=== PATIENT | female | born 1985 | race Asian ===

== ENCOUNTER 2016-08-25 18:08 | Emergency (ER) | payer BC ==
[2016-08-25] MEDS ORDERED: Famotidine IV* 10 MG/ML 2 ML (20 mg) IV ONE (19:12)
[2016-08-25] MEDS ORDERED: Al Hydrox/Mg Hydrox/Simet LIQ* 30 ML UDC PO ONE (19:12)
[2016-08-25] MEDS ORDERED: Lidocaine 2% VISCOUS* 15 ML UDC PO ONE (19:12)
[2016-08-25] MEDS ORDERED: Ondansetron INJ* 2 MG/ML VIAL IV ONE (19:12)
[2016-08-25] MEDS ORDERED: SCOP/HYOS/ATR/PB(NF) 10 ML UDC PO ONE (19:12)
[2016-08-25] MEDS ORDERED: NS 0.9% 1000 ML* 1,000 ML IV ONE (19:12)
[2016-08-25 19:25] LABS: Hematocrit 39 % (35-47); Mean Corpuscular HGB Conc 34 g/dl (31-36); Mean Corpuscular Hemoglobin 30 pg (27-31); Mean Corpuscular Volume 89 fL (80-97); Mean Platelet Volume 8 um3 (7.4-10.4); Red Blood Count 4.37 10^6/ul (4.0-5.4); Red Cell Distribution Width 13 % (10.5-15); White Blood Count 8.7 10^3/ul (3.5-10.8)
[2016-08-25 19:29] LABS: Urine Bacteria Absent (Absent); Urine Bilirubin Negative (Negative); Urine Glucose Negative (Negative); Urine Nitrite Negative (Negative)
[2016-08-25 19:37] LABS: ALT 15 U/L (7-52); AST 15 U/L (13-39); Albumin 4.2 g/dL (3.2-5.2); Alkaline Phosphatase 38 U/L (34-104); Amylase 47 U/L (29-103); Anion Gap 4 mmol/L (2-11); BUN/Creatinine Ratio 15.1 (8-20); Blood Urea Nitrogen 8 mg/dL (6-24); C Reactive Protein 28.18 mg/L (< 5.00); CO2 Carbon Dioxide 27 mmol/L (22-32); Calcium 9.5 mg/dL (8.6-10.3); Chloride 104 mmol/L (101-111); EGFR African American 170.9 (>60); EGFR Non-African American 132.9 (>60); Globulin 3.1 g/dL (2-4); Glucose 91 mg/dL (70-100); Lipase 35 U/L (11.0-82.0); Potassium 4.1 mmol/L (3.5-5.0); Sodium 135 mmol/L (133-145); Total Protein 7.3 g/dL (6.4-8.9)
[2016-08-25] MEDS ORDERED: Morphine INJ* 4 MG/ML 1 ML CARPUJECT IV ONE (20:22)
[2016-08-25] MEDS ORDERED: Iohexol 300* (CONTRAST) 10 ML SDV IV ONE (20:36)
--- NOTE | 2016-08-25 22:13 | RAD ---
INDICATION: Bilateral upper quadrant and epigastric region abdominal pain. Bloating, nausea, dizziness. COMPARISON: December 29, 2015 HIDA scan. TECHNIQUE: Multidetector CT images were obtained from the lung bases to the ischial tuberosities with 72 mL Omnipaque 300 IV and oral contrast. Multiplanar reformation. REPORT: Unremarkable visualized inferior thorax. Upper normal liver size. No suspicious hepatic lesions or biliary dilatation. No CT abnormality of the gallbladder, pancreas, spleen. Small splenules anterior to the spleen. Negative for CT abnormality of the upper GI, small bowel, medial and posterior extending appendix, and colon. Negative for ascites, free air, hernias. Normal adrenal glands. Unremarkable kidneys with symmetric nephrograms and pyelograms. Negative for ureteral dilatation. Unremarkable urinary bladder as well as the rightward deviated uterus and RIGHT adnexal region. Approximate 2 cm grossly water density well circumscribed region in the LEFT ovary is most consistent with a follicular or hemorrhagic cyst. Negative for lymphadenopathy. Unremarkable abdominal aorta and iliac arteries. Physiologic distention of the IVC. Negative for suspicious osseous lesions. IMPRESSION: 1. No abnormality to account for upper abdominal pain. Normal appendix documented. Negative for obstructive uropathy. 2. Low suspicion approximate 2 cm probable follicular or hemorrhagic cyst of the LEFT ovary. Correlate with clinical findings and consider pelvic ultrasound for further assessment if deemed appropriate.
[2016-08-25 22:57] VITALS: BP 124/81
--- NOTE | 2016-08-25 23:00 | ED ---
Wilfredo Vasquez Matthew, scribed for Willis Yee MD on 08/25/16 at 1914 . Abdominal Pain/Female - HPI Summary HPI Summary: A 31 y/o female presents to the ED with intermittent epigastric abdominal pain since 3 days ago. The pain is rated 7-8/10 in severity and described as burning followed by sharp pains. Associated symptoms include bloating, dizziness w/ exertion, and nausea. The patient denies vomiting, diarrhea, and constipation. The patient has had these symptoms before and she went to a gastroenterology. Her gallbladder was also found to be normal at that time. The pain is worse ~30 minutes after PO intake and at night. - History of Current Complaint Chief Complaint: EDAbdPain Stated Complaint: ABD PAIN,BLOATING Time Seen by Provider: 08/25/16 19:03 Hx Obtained From: Patient ?: No Onset/Duration: Gradual Onset, Lasting Days - 3, Still Present Timing: Intermittent Episode Lasting Severity Initially: Moderate Severity Currently: Moderate Pain Intensity: 8 Pain Scale Used: 0-10 Numeric Location: Epigastric Radiates: No Character: Sharp, Burning Aggravating Factor(s): Food, Other: - At night Alleviating Factor(s): Nothing Associated Signs and Symptoms: Positive: Dizzy - w/ exertion, Nausea, Other: - bloating. Negative: Vomiting, Diarrhea Allergies/Adverse Reactions: Allergies Allergy/AdvReac Type Severity Reaction Status Date / Time No Known Allergies Allergy Verified 07/03/12 11:07 PMH/Surg Hx/FS Hx/Imm Hx Endocrine/Hematology History: Denies: Hx Diabetes GI History: Reports: Hx Gastroesophageal Reflux Disease Infectious Disease History: No Infectious Disease History: Denies: Traveled Outside the [place] in Last 30 Days - Family History Known Family History: Negative: Diabetes - Social History Alcohol Use: Occasionally Substance Use Type: Reports: None Smoking Status (MU): Never Smoked Tobacco Review of Systems Constitutional: Negative Eyes: Negative ENT: Negative Cardiovascular: Negative Respiratory: Negative Gastrointestinal: Other - abdominal bloating Positive: Abdominal Pain - Epigastric , Nausea. Negative: Vomiting, Diarrhea Genitourinary: Negative Musculoskeletal: Negative Skin: Negative Neurological: Other - Dizziness w/ exertion Psychological: Normal All Other Systems Reviewed And Are Negative: Yes Physical Exam - Summary Physical Exam Summary: VITAL SIGNS: Reviewed. GENERAL: Patient is a well developed and nourished female who is lying comfortable in the stretcher. Patient is not in any acute respiratory distress. HEAD AND FACE: Normocephalic and atraumatic. EYES: PERRLA, EOMI x 2, No injected conjunctiva. EARS: Hearing grossly intact. Ear canals and tympanic membranes are WNL. MOUTH: Oropharynx within normal limits. NECK: Supple, trachea is midline, no adenopathy, no JVD. CHEST: Symmetric, no tenderness at palpation LUNGS: Clear to auscultation bilaterally. No wheezing or crackles. CVS: RRR,, S1 and S2 present, no murmurs or gallops appreciated. ABDOMEN: Soft, positive epigastric tenderness. . No signs of distention. Positive bowel sounds. No rebound no guarding, and no masses palpated. No abdominal bruit or pulsations. EXTREMITIES: FROM in all major joints, no edema, no cyanosis or clubbing. NEURO: Alert and oriented x 3. No acute neurological deficits. Speech is normal. SKIN: Dry and warm Triage Information Reviewed: Yes Vital Signs On Initial Exam: Initial Vitals Temp Pulse Resp BP Pulse Ox 98.6 F 98 16 137/94 100 08/25/16 18:12 08/25/16 18:12 08/25/16 18:12 08/25/16 18:12 08/25/16 18:12 Vital Signs Reviewed: Yes Diagnostics - Vital Signs Vital Signs Temp Pulse Resp BP Pulse Ox 08/25/16 18:12 98.6 F 98 16 137/94 100 - Laboratory Lab Results: Lab Results 08/25/16 08/25/16 08/25/16 Range/Units 15:05 15:05 15:05 WBC 8.7 (3.5-10.8) 10^3/ul RBC 4.37 (4.0-5.4) 10^6/ul Hgb 13.0 (12.0-16.0) g/dl Hct 39 (35-47) % MCV 89 (80-97) fL MCH 30 (27-31) pg MCHC 34 (31-36) g/dl RDW 13 (10.5-15) % Plt Count 322 (150-450) 10^3/ul MPV 8 (7.4-10.4) um3 Neut % (Auto) 55.4 (38-83) % Lymph % (Auto) 34.6 (25-47) % Starke % (Auto) 6.8 (1-9) % Eos % (Auto) 2.7 (0-6) % Baso % (Auto) 0.5 (0-2) % Absolute Neuts (auto) 4.8 (1.5-7.7) 10^3/ul Absolute Lymphs (auto) 3.0 (1.0-4.8) 10^3/ul Absolute Monos (auto) 0.6 (0-0.8) 10^3/ul Absolute Eos (auto) 0.2 (0-0.6) 10^3/ul Absolute Basos (auto) 0 (0-0.2) 10^3/ul Absolute Nucleated RBC 0.01 10^3/ul Nucleated RBC % 0.1 Sodium 135 (133-145) mmol/L Potassium 4.1 (3.5-5.0) mmol/L Chloride 104 (101-111) mmol/L Carbon Dioxide 27 (22-32) mmol/L Anion Gap 4 (2-11) mmol/L BUN 8 (6-24) mg/dL Creatinine 0.53 (0.51-0.95) mg/dL Est GFR ( Amer) 170.9 (>60) Est GFR (Non-Af Amer) 132.9 (>60) BUN/Creatinine Ratio 15.1 (8-20) Glucose 91 (70-100) mg/dL Calcium 9.5 (8.6-10.3) mg/dL Total Bilirubin 0.30 (0.2-1.0) mg/dL AST 15 (13-39) U/L ALT 15 (7-52) U/L Alkaline Phosphatase 38 (34-104) U/L C-Reactive Protein 28.18 H (< 5.00) mg/L Total Protein 7.3 (6.4-8.9) g/dL Albumin 4.2 (3.2-5.2) g/dL Globulin 3.1 (2-4) g/dL Albumin/Globulin Ratio 1.4 (1-3) Amylase 47 (29-103) U/L Lipase 35 (11.0-82.0) U/L Beta HCG, Quant < 0.60 mIU/mL Urine Color Yellow Urine Appearance Clear Urine pH 7.0 (5-9) Ur Specific [place] 1.008 L (1.010-1.030) Urine Protein Negative (Negative) Urine Ketones Negative (Negative) Urine Blood 1+ H (Negative) Urine Nitrate Negative (Negative) Urine Bilirubin Negative (Negative) Urine Urobilinogen Negative (Negative) Ur Leukocyte Esterase 1+ H (Negative) Urine WBC (Auto) Trace(0-5/hpf) (Absent) Urine RBC (Auto) Trace(0-2/hpf) (Absent) Ur Squamous Epith Cells Present H (Absent) Urine Bacteria Absent (Absent) Urine Glucose Negative (Negative) Result Diagrams: 08/25/16 15:05 08/25/16 15:05 Lab Statement: Any lab studies that have been ordered have been reviewed, and results considered in the medical decision making process. - CT A/P CT Interpretation: No Acute Changes - IMPRESSION: 1. No abnormality to account for upper abdominal pain. Normal appendix documented. Negative for obstructive uropathy. 2. Low suspicion approximate 2 cm probable follicular or hemorrhagic cyst of the LEFT ovary. Correlate with clinical findings and consider pelvic ultrasound for further assessment if deemed appropriate. CT Interpretation Completed By: Radiologist Abdominal Pain Fem Course/Dx - Course Course Of Treatment: A 31 y/o female presents to the ED with a CC of epigastric abdominal pain. She denies nausea, vomiting, diarrhea, and constipation. She reports it is a burning pain. Test results WNL. During the ED course, the patient was given IV fluid, GI cocktail, and protonics. Initially there were no improvements; therefore I decided to do A/P CT. CT results showed no acute intraabdominal pathology. Full report as above. At this point, I discussed to the patient the need to follow-up with GI. She understands and agrees. I discussed all the findings and test results with the patient and patient. Patient was instructed to return to the emergency room immediately if any of the symptoms return or worsens. They understand and agree. They were explained the possibility of an early abdominal pathology which was not detected at this time despite the physical exam and testing. They understand and agree. Abdominal exam before discharge: Soft,NT. No signs of distention. BS present. No rebound no guarding, and no masses palpated. Patient is alert and oriented. Patient is hemodynamically stable. Patient is to follow up with primary care physician in the next 24 hours. Patient and patients parents agree and understands. - Diagnoses Provider Diagnoses: Abdominal pain, Gastritis Discharge - Discharge Plan Condition: Stable Disposition: HOME Patient Education Materials: Abdominal Pain (ED) Referrals: Valentino Lopez MD [Primary Care Provider] - 1 Day Nikhil Brady MD [Medical Doctor] - 1 Day Additional Instructions: Please follow-up with your primary care physician and Dr. Brady. The documentation as recorded by the Wilfredo etienne Matthew accurately reflects the service I personally performed and the decisions made by , Willis Yee MD.
== END 2016-08-25 22:56 | disposition home or self-care (01) ==
LOC: ED 18:08
DX: R10.13 Epigastric pain (principal); R11.0 Nausea; K29.70 Gastritis, unspecified, without bleeding
CPT/HCPCS: 36415; 74177; 80053; 81003; 81015; 82150; 83690; 84702; 85025; 86140; 87086; 96361; 96374; 96375; 99284; A9270-GY; J2270; J2405; Q9967

== ENCOUNTER → 2019-07-09 07:34 | Day surgery (SDC) | payer BC ==
[~2019-07-09 07:34] MED LIST: Buffered Lidocaine 1% SYRIN* 1 ML/SYRINGE INTRADERM ONE; Dexamethasone IV* 4 MG/ML 1 ML (4 MG) ONE; Gelfoam 12-7 ADSORBABL SPONGE* 1 EA SPONGE ONE; Lactated Ringers 1000 ML Bag* 1,000 ML IV SCH; Lidocaine 2% PF * 5 ML VIAL ONE; Lidocaine 2% w/ EPI 1:200,000* 20 ML SDV VIAL ONE; Midazolam* 1 MG/ML 2 ML VIAL (2 MG) ONE; Naloxone* 0.4 MG/ML 1 ML VIAL IV PRN; Ofloxacin 0.3% (Ear Drop)* 5 ml BTL ONE; Ondansetron INJ* 2 MG/ML VIAL IV PRN; Ondansetron INJ* 2 MG/ML VIAL ONE; Oxymetazoline 0.05% NASAL SPR* 15 ML BTL ONE; Propofol* 10 MG/ML 20 ML BTL ONE; fentaNYL* 50 MCG/ML 2 ML VIAL (100 MCG VIAL) ONE; oxyCODONE/Acetamin 5/325 MG* TAB ONE
[2019-07-09] MEDS: fentaNYL* 50 MCG/ML 2 ML VIAL (100 MCG VIAL) IV PRN ×2 (10:38→10:41)
[2019-07-09] MEDS: oxyCODONE/Acetamin 5/325 MG* TAB PO PRN ×2 (10:51→10:57)
[2019-07-09 12:12] VITALS: BP 156/111
--- NOTE | 2019-07-09 14:36 | OP ---
DATE OF OPERATION: 07/09/19 - SDS DATE OF : 81 SURGEON: Yosi Baca MD PRE-OP DIAGNOSES: 1. Chronic rhinitis. 2. Hypertrophied turbinates. 3. Chronic eustachian tube dysfunction. POST-OP DIAGNOSES: 1. Chronic rhinitis. 2. Hypertrophied turbinates. 3. Chronic eustachian tube dysfunction. OPERATIVE PROCEDURE: Bilateral myringotomy and placement of bilateral tympanostomy T tubes, bilateral submucosal resection in inferior turbinates, bilateral eustachian tube dilatation with Acclarent balloon dilatation. BRIEF HISTORY: This 34-year-old female with multiple sets of tubes in the past , with symptoms of eustachian tube dysfunction with adhesive changes, topical nasal steroids were unsuccessful. The patient had chronic rhinorrhea with chronic congestion and nasal dyspnea. He elected for surgical management. DESCRIPTION OF PROCEDURE: The patient was taken to the operating room. General anesthetic was given to the patient, intubated with LMA. Ears were examined on the microscope and small incisions made anteriorly inferiorly. T-tubes were placed in both ears. Then we turned our attention to the nose. Using the 30-degree telescope, the eustachian tube was identified on both sides. The eustachian balloon made by Acclarent was then introduced, elevated to 12 pressure. Subsequently once both sides were done, we turned our attention to the inferior turbinates. Small incision in the inferior turbinate mucosa, submucosal elevation and then resection of the small amounts of the inferior turbinate bone and soft tissue. Electrocautery for hemostasis on both sides. The patient was awakened and sent to recovery room in stable condition. Instrument and sponge count correct. Blood loss minimal. [id number]/[facility] #: [id number] MTDD
== END | disposition home or self-care (01) ==
LOC: OR 07:34
PROVIDERS: ATTEND Otolaryngology
DX: H69.83 Other specified disorders of Eustachian tube, bilateral (principal); J34.3 Hypertrophy of nasal turbinates; J31.0 Chronic rhinitis; H65.23 Chronic serous otitis media, bilateral; H92.13 Otorrhea, bilateral; R51 Headache; K21.9 Gastro-esophageal reflux disease without esophagitis
CPT/HCPCS: 81025; A9270-GY; C9745; J1100; J2250; J2405; J2704; J3010

== ENCOUNTER 2022-03-02 10:43 | Observation (INO) ==
[~2022-03-02 10:43] MED LIST changes: -Buffered Lidocaine 1% SYRIN* 1 ML/SYRINGE INTRADERM ONE; +Clindamycin 900 MG/D5W BAG IVPB ONE; -Dexamethasone IV* 4 MG/ML 1 ML (4 MG) ONE; -Gelfoam 12-7 ADSORBABL SPONGE* 1 EA SPONGE ONE; +HYDROmorphone PCA 20 MG/20 ML PCA.SYRING PCA SCH; -Lactated Ringers 1000 ML Bag* 1,000 ML IV SCH; -Lidocaine 2% PF * 5 ML VIAL ONE; -Lidocaine 2% w/ EPI 1:200,000* 20 ML SDV VIAL ONE; -Midazolam* 1 MG/ML 2 ML VIAL (2 MG) ONE; -Naloxone* 0.4 MG/ML 1 ML VIAL IV PRN; -Ofloxacin 0.3% (Ear Drop)* 5 ml BTL ONE; +Ondansetron 4 mg VIAL 2 MG/ML 2 ml VIAL IV ONE; -Ondansetron INJ* 2 MG/ML VIAL IV PRN; -Ondansetron INJ* 2 MG/ML VIAL ONE; -Oxymetazoline 0.05% NASAL SPR* 15 ML BTL ONE; -Propofol* 10 MG/ML 20 ML BTL ONE; +Scopolamine 1 mg/72hr PATCH TRANSDERM ONE; -fentaNYL* 50 MCG/ML 2 ML VIAL (100 MCG VIAL) ONE; +oxyCODONE SR 10 mg TAB PO ONE; -oxyCODONE/Acetamin 5/325 MG* TAB ONE
[2022-03-02 11:37] LABS: Activated Partial Thrombo Time 29.8 seconds (26.0-38.0); INR 1.01 (0.86-1.15)
[2022-03-02] MEDS ORDERED: oxyCODONE SR 10 mg TAB ONE (11:50)
[2022-03-02] MEDS ORDERED: Ondansetron 4 mg VIAL 2 MG/ML 2 ml VIAL ONE (11:50)
[2022-03-02] MEDS ORDERED: Scopolamine 1 mg/72hr PATCH ONE (11:50)
[2022-03-02] MEDS ORDERED: Clindamycin 900 MG/D5W BAG IVPB ONE (12:00)
[2022-03-02 12:16] LABS: Anion Gap 8 mmol/L (2-11); Blood Urea Nitrogen 9 mg/dL (6-24); CO2 Carbon Dioxide 24 mmol/L (22-32); Calcium 9.6 mg/dL (8.6-10.3); Chloride 105 mmol/L (101-111); Glucose 85 mg/dL (70-100); Sodium 137 mmol/L (135-145); eGFR CKD-EPI 102.8 (>60)
[2022-03-02 12:22] LABS: HCG Pregnancy 1.04 mIU/mL
[2022-03-02] MEDS ORDERED: Iohexol 350 (CONTRAST) 50 ML SDV IV ONE (12:40)
[2022-03-02] MEDS ORDERED: Lidocaine 1% MPF 5 ML VIAL ONE (12:40)
[2022-03-02] MEDS ORDERED: Heparin 2 UNITS/ML IVPREMIX 3,000 UNIT/1,500 ML BAG IV ONE (12:40)
[2022-03-02] MEDS ORDERED: fentaNYL 100 mcg/2 ml 50 MCG/ML VIAL ONE (12:48)
[2022-03-02] MEDS ORDERED: Midazolam 5 mg/5 ml VIAL 1 mg/ml 5 ml VIAL (5 mg) ONE (12:48)
[2022-03-02] MEDS ORDERED: nitroGLYCERIN DRIP 25,000 MCG/250 ML BTL ONE (12:48)
[2022-03-02] MEDS ORDERED: HYDROmorphone PCA 20 MG/20 ML PCA.SYRING PCA SCH (13:00)
[2022-03-02] MEDS ORDERED: HYDROmorphone 0.5 MG/0.5 ML SYRINGE ONE ×2 (14:16→14:33)
[2022-03-02] MEDS ORDERED: Ondansetron 4 mg VIAL 2 MG/ML 2 ml VIAL IV PRN (14:45)
[2022-03-02] MEDS ORDERED: HYDROmorphone 1 MG/1 ML SYRINGE IV ONE (15:18)
[2022-03-02] MEDS ORDERED: HYDROmorphone 1 MG/1 ML SYRINGE ONE (15:18)
[2022-03-02] MEDS ORDERED: NS 0.9% 1,000 ML IV SCH (15:45)
[2022-03-02] MEDS: Ondansetron 4 mg VIAL 2 MG/ML 2 ml VIAL IV SCH (20:09)
[2022-03-02] MEDS ORDERED: NORETHINDRONE ETHIN ESTRADIOL PO SCH (21:00)
[2022-03-02] MEDS: NF: NORETHINDRONE ACETATE 5 MG TAB (NF) PO SCH (22:43)
[2022-03-03] MEDS: Ondansetron 4 mg VIAL 2 MG/ML 2 ml VIAL IV SCH ×2 (02:02→08:12)
[2022-03-03] MEDS: NF: NORETHINDRONE ACETATE 5 MG TAB (NF) PO SCH (08:14)
[2022-03-03] MEDS ORDERED: HYDROcodone/ACETAMIN 5/325 mg TAB PO PRN (08:44)
[2022-03-03] MEDS ORDERED: Prochlorperazine 5 mg/ml 2 ml VIAL (10 mg) IV ONE (08:46)
[2022-03-03 10:57] VITALS: BP 131/91
[2022-03-03] MEDS ORDERED: CMC: Ketorolac 10 mg TAB (NF) PO SCH (14:00)
== END 2022-03-03 12:50 | disposition home or self-care (01) ==
LOC: SSU 10:43 → CHICATH 10:43
PROVIDERS: ADMIT Radiology Diagnostic Radiology; ATTEND Radiology Diagnostic Radiology
PROC: ANG.UFE (2022-03-02 12:10)